=== PATIENT | male | born 1955 | race Caucasian/White ===

== ENCOUNTER 2025-01-28 07:01 | Observation (INO) ==
--- NOTE | 2024-03-22 10:40 | PAT Medication Instructions ---
Medication Instructions Date of Service March 22, 2024 Home Medications Medication Instructions Recorded blood-glucose meter (FreeStyle #1 ea 08/30/22 Lite Meter kit) ostomy supplies #100 ea 09/02/22 blood sugar diagnostic (FreeStyle #100 ea 09/03/22 Lite Strips) amlodipine 10 mg tablet 10 mg PO HS #90 tabs 06/08/23 celecoxib 100 mg capsule (Celebrex) 100 mg PO BID #60 caps 01/04/24 atorvastatin 20 mg tablet 20 mg PO QPM #90 tabs 01/26/24 metformin 500 mg tablet,extended 1,000 mg (2 x 500 mg) PO BID #360 02/09/24 release 24 hr tabs losartan 100 mg tablet 100 mg PO DAILY #90 tabs 02/20/24 glimepiride 4 mg tablet 4 mg PO DAILY #90 tabs 03/08/24 garlic 400 mg PO QAM glucosamine-chondroitin 250 mg-200 mg tablet (Osteo Bi-Flex) 2 tab PO QAM amlodipine 10 mg tablet 10 mg PO HS celecoxib 100 mg capsule (Celebrex) 100 mg PO BID atorvastatin 20 mg tablet 20 mg PO QPM metformin 500 mg tablet,extended release 24 hr 1,000 mg (2 x 500 mg) PO BID losartan 100 mg tablet 100 mg PO DAILY glimepiride 4 mg tablet 4 mg PO DAILY saw palmetto 450 mg capsule 450 mg PO QAM ASK your surgeon for instructions celecoxib 100 mg capsule (Celebrex) 100 mg PO BID STOP taking 2 weeks before surgery (or as soon as possible if surgery is within 2 weeks) garlic 400 mg PO QAM glucosamine-chondroitin 250 mg-200 mg tablet (Osteo Bi-Flex) 2 tab PO QAM saw palmetto 450 mg capsule 450 mg PO QAM DO NOT take the morning of surgery metformin 500 mg tablet,extended release 24 hr 1,000 mg (2 x 500 mg) PO BID losartan 100 mg tablet 100 mg PO DAILY glimepiride 4 mg tablet 4 mg PO DAILY Take evening before surgery amlodipine 10 mg tablet 10 mg PO HS atorvastatin 20 mg tablet 20 mg PO QPM metformin 500 mg tablet,extended release 24 hr 1,000 mg (2 x 500 mg) PO BID Other Notes NOTHING TO EAT OR DRINK AFTER MIDNIGHT If you have any questions please call us at [phone] or [phone] or [phone] or [phone]
--- NOTE | 2024-03-30 10:38 | Anesthesiology Consultation ---
Date of Service March 30, 2024 Assessment & Plan (1) Encounter for pre-operative examination: - check BSG am DOS. - Outpatient joint assessment: Patient is currently scheduled for inpatient pathway. If re-evaluated and patient/surgeon requests outpatient pathway, patient is acceptable candidate for outpatient joint program from anesthesia standpoint pending surgeon's office assessment of pt motivation/support/completion of same day joint program preop requirements. Chart Review Chart Review: Acceptable Risk for Surgery and Patient seen in Pre Admission Testing Teaching & Discussion Pre-Anesthesia Teaching/Discussion Notes: Instructed NPO after midnight before surgery, except medications with 15 cc of water. Medication instructions provided according to the PAT guidelines. History Surgery Operation Date: 04/27/24 11:00 Proposed Procedures p Left Total Knee Arthroplasty - Elmer Waters DO Height/Weight Height: 5 ft 9 in Weight: 105.6 kg Allergies Allergy/AdvReac Type Severity Reaction Status Date / Time No Known Allergies Allergy Unknown Verified 03/15/24 09:32 Medications Home Medications Medication Instructions Recorded Confirmed Last Taken blood-glucose meter (FreeStyle #1 ea 08/30/22 11/14/23 Unknown Lite Meter kit) garlic 400 mg PO QAM 09/02/22 03/15/24 09/07/22 glucosamine-chondroitin 250 mg-200 2 tab PO QAM 09/02/22 03/15/24 09/07/22 mg tablet (Osteo Bi-Flex) ostomy supplies #100 ea 09/02/22 11/14/23 Unknown blood sugar diagnostic (FreeStyle #100 ea 09/03/22 11/14/23 Unknown Lite Strips) amlodipine 10 mg tablet 10 mg PO HS #90 tabs 06/08/23 03/15/24 Unknown celecoxib 100 mg capsule (Celebrex) 100 mg PO BID #60 caps 01/04/24 03/15/24 Unknown atorvastatin 20 mg tablet 20 mg PO QPM #90 tabs 01/26/24 03/15/24 Unknown metformin 500 mg tablet,extended 1,000 mg (2 x 500 mg) PO BID #360 02/09/24 03/15/24 Unknown release 24 hr tabs losartan 100 mg tablet 100 mg PO DAILY #90 tabs 02/20/24 03/15/24 Unknown glimepiride 4 mg tablet 4 mg PO DAILY #90 tabs 03/08/24 03/15/24 Unknown saw palmetto 450 mg capsule 450 mg PO QAM 03/15/24 03/15/24 Unknown Past Medical History Medical History (Updated 03/30/24 @ 11:02 by Brooke Mckeon PA-C) Arthritis Benign prostatic hyperplasia Colostomy in place GERD (gastroesophageal reflux disease) infrequent History of colon cancer dx 2002-- w/ chemo and radiation Hyperlipidemia Hypertension controlled, stable per pt Type 2 diabetes mellitus NIDDM Patient denies h/o stroke, seizures, heart attack, heart failure, or blood clots/DVTs. Pt unsure if he has had any blood transfusions. Exercise / Class Metabolic Activity II 4-5 Yardwork/Stairs/Walk up hill (denies chest discomfort or shortness of breath with one flight of stairs) Past Family History Family History Aunt Colorectal cancer Other Myocardial infarction No family history of adverse response to anesthesia Denies family history of Ovarian cancer Prostate cancer Breast cancer Past Surgical History Surgical History (Updated 03/30/24 @ 11:01 by Brooke Mckeon PA-C) History of colon resection History of creation of ostomy History of surgical removal of skin lesion left ear History of tooth extraction Hx of colonoscopy Past Anesthesia History No Hx of Anesthesia Complications and No Family Hx of Anesthesia Complications History of PONV No Hx of PONV and No Hx of Motion Sickness Social History Smoking Status: Never smoker tobacco type: smokeless tobacco Do You Dip or Chew Tobacco: Yes (daily>made aware npo>advised) Hx Alcohol Use: Yes Alcohol type: beer alcohol intake frequency: holidays/special occasions only substance use type: does not use Review of Systems Snoring, denies witnessed apneas. Patient denies chest pain, shortness of breath, dyspnea on exertion, fever, chills, cough, wheezing, or palpitations. Physical Exam Vital Signs Vitals BP 130/80 P 79 TEMP 98 SP02 97% on RA RESP 18 Physical Patient resting comfortably in chair in no acute distress, alert and oriented, responding appropriately throughout visit Full cervical extension range of motion without pain TMD 3.5 finger breadths Mallampati Score 2 Dentition: edentulous Lungs: normal respiratory effort. Good air movement, clear throughout to auscultation, no adventitious breath sounds Cardiac: regular rate and rhythm, no murmurs noted Carotid arteries: negative bruit bilat Lab Results Anesthesia Preop Results Results Anesthesia Widget: WBC 5.93 K/ul (4.8-10.8) 03/30/24 Hgb 14.5 g/dl (14.0-18.0) 03/30/24 Hct 43.0 % (42.0-52.0) 03/30/24 Plt 174 K/uL (130-400) 03/30/24 Na 137 mmol/L (136-145) 02/07/24 K 3.9 mmol/L (3.5-5.1) 02/07/24 Cl 105 mmol/L (98-107) 02/07/24 CO2 25 mmol/L (21-32) 02/07/24 BUN 19 mg/dl (6-23) 02/07/24 Creat 0.76 mg/dl (0.6-1.4) 02/07/24 Glucose Level 235 mg/dl (70-99(Fasting)) H 02/07/24 PT 11.3 Seconds (9.0-12.0) 03/30/24 PTT 27 Seconds (21-31) 03/30/24 INR 1.0 (0.9-1.1) 03/30/24 TSH 0.833 uIu/ml (0.300-4.500) 02/07/24 HA1c 7.6 % (4.5-5.6) H 02/07/24 Blood Type A Negative 03/30/24 Antibody Screen NEGATIVE 03/30/24 Testing Laboratory Results Patient states that diabetic medications were adjusted by PCP-declines updated A1c which was done within 3 months and states surgeon's office advised it is within acceptable range. Surgeon's office made aware of elevated A1c. Electrocardiogram Date: 03/30/24 NSR, rate 75 bpm Left anterior fascicular block Moderate voltage criteria for LVH, may be normal variant Chest X-Ray Date: 03/30/24 No active disease in the chest.
--- NOTE | 2024-12-31 11:24 | PAT Medication Instructions ---
Medication Instructions Date of Service December 31, 2024 Home Medications Medication Instructions Recorded blood-glucose meter (FreeStyle #1 ea 08/30/22 Lite Meter kit) blood sugar diagnostic (FreeStyle #100 ea 09/03/22 Lite Strips) metformin 500 mg tablet,extended 1,000 mg (2 x 500 mg) PO BID #360 02/09/24 release 24 hr tabs amlodipine 10 mg tablet 10 mg PO HS #90 tabs 09/14/24 atorvastatin 20 mg tablet 20 mg PO QPM #90 tabs 09/14/24 ostomy supplies #100 ea 10/10/24 indapamide 1.25 mg tablet 1.25 mg PO QAM #90 tabs 11/02/24 metformin 500 mg tablet,extended release 24 hr 1,000 mg (2 x 500 mg) PO BID amlodipine 10 mg tablet 10 mg PO HS atorvastatin 20 mg tablet 20 mg PO QPM acetaminophen 500 mg oral powder packet (Tylenol Extra Strength) 500 mg PO BID PRN cyclobenzaprine 7.5 mg tablet 7.5 mg PO UD PRN diclofenac sodium 20 mg/gram/actuation (2 %) topical soln metered-dose pump 1 pump topical UD PRN indapamide 1.25 mg tablet 1.25 mg PO QAM cholecalciferol (vitamin D3) 1,250 mcg (50,000 unit) capsule 50,000 unit PO Q7D glimepiride 4 mg tablet 4 mg PO QAM losartan 100 mg tablet 100 mg PO QAM sitagliptin phosphate 50 mg tablet (Januvia) 50 mg PO QAM Continue as directed cyclobenzaprine 7.5 mg tablet 7.5 mg PO UD PRN(if needed) ASK your prescriber and surgeon diclofenac sodium 20 mg/gram/actuation (2 %) topical soln metered-dose pump 1 pump topical UD PRN (do not apply on or near surgical site) indapamide 1.25 mg tablet 1.25 mg PO QAM DO NOT take the morning of surgery metformin 500 mg tablet,extended release 24 hr 1,000 mg (2 x 500 mg) PO BID cholecalciferol (vitamin D3) 1,250 mcg (50,000 unit) capsule 50,000 unit PO Q7D glimepiride 4 mg tablet 4 mg PO QAM losartan 100 mg tablet 100 mg PO QAM sitagliptin phosphate 50 mg tablet (Januvia) 50 mg PO QAM Take morning of surgery With a small sip of water, OTHERWISE NOTHING TO EAT OR DRINK AFTER MIDNIGHT: acetaminophen 500 mg oral powder packet (Tylenol Extra Strength) 500 mg PO BID PRN(if needed) Take evening before surgery metformin 500 mg tablet,extended release 24 hr 1,000 mg (2 x 500 mg) PO BID amlodipine 10 mg tablet 10 mg PO HS atorvastatin 20 mg tablet 20 mg PO QPM acetaminophen 500 mg oral powder packet (Tylenol Extra Strength) 500 mg PO BID PRN(if needed) Other Notes If you have any questions please call us at [phone] or [phone] or [phone] or [phone]
--- NOTE | 2025-01-02 09:14 | Anesthesiology Consultation ---
Date of Service January 02, 2025 Assessment & Plan (1) Encounter for pre-operative examination: Chart Review Chart Review: Acceptable Risk for Surgery and Patient seen in Pre Admission Testing - Check BSG AM DOS - Patient NOT an ideal OPJ candidate (currently 23 hour obs) Per PAT appt on 01/02/25, no recent illness/disease exposures, illness related symptoms, or recent illness/disease positive tests. Will leave to surgeon's discretion if preop Covid testing needed Teaching & Discussion Pre-Anesthesia Teaching/Discussion Notes: Instructed NPO after midnight before surgery,except medications with 15 cc of water. Medication instructions provided according to the [facility] guidelines. History Surgery Operation Date: 04/27/24 12:00 Proposed Procedures p Left Total Knee Arthroplasty - Elmer Waters DO Operation Date: 01/28/25 11:15 Proposed Procedures p Left Total Knee Arthroplasty - Elmer Waters DO Height/Weight Height: 5 ft 10 in Weight: 110.1 kg Allergies Allergy/AdvReac Type Severity Reaction Status Date / Time No Known Allergies Allergy Unknown Verified 12/28/24 11:51 Medications Home Medications Medication Instructions Recorded Confirmed Last Taken blood-glucose meter (FreeStyle #1 ea 08/30/22 11/12/24 Unknown Lite Meter kit) blood sugar diagnostic (FreeStyle #100 ea 09/03/22 11/12/24 Unknown Lite Strips) metformin 500 mg tablet,extended 1,000 mg (2 x 500 mg) PO BID #360 02/09/24 0 12/28/24 Unknown release 24 hr tabs amlodipine 10 mg tablet 10 mg PO HS #90 tabs 09/14/24 12/28/24 Unknown atorvastatin 20 mg tablet 20 mg PO QPM #90 tabs 09/14/24 12/28/24 Unknown acetaminophen 500 mg oral powder 500 mg PO BID PRN Pain 10/10/24 12/28/24 Unknown packet (Tylenol Extra Strength) cyclobenzaprine 7.5 mg tablet 7.5 mg PO UD PRN muscle spasms 10/10/24 12/28/24 Unknown diclofenac sodium 20 1 pump topical UD PRN Pain 10/10/24 12/28/24 Unknown mg/gram/actuation (2 %) topical soln metered-dose pump ostomy supplies #100 ea 10/10/24 11/12/24 Unknown indapamide 1.25 mg tablet 1.25 mg PO QAM #90 tabs 11/02/24 12/28/24 Unknown cholecalciferol (vitamin D3) 1,250 50,000 unit PO Q7D 12/28/24 12/28/24 Unknown mcg (50,000 unit) capsule glimepiride 4 mg tablet 4 mg PO QAM 12/28/24 12/28/24 Unknown losartan 100 mg tablet 100 mg PO QAM 12/28/24 12/28/24 Unknown sitagliptin phosphate 50 mg tablet 50 mg PO QAM 12/28/24 12/28/24 Unknown (Jose Danieluvia) Past Medical History Medical History Arthritis Benign prostatic hyperplasia pt unsure- patient has no urinary symptoms Colostomy in place - no issues currently GERD (gastroesophageal reflux disease) hx, infrequent- controlled and stable History of colon cancer dx 2002-- s/p colectomy with colostomy and chemo and radiation Hyperlipidemia hx Hypertension controlled, stable per pt Type 2 diabetes mellitus NIDDM Exercise / Class Metabolic Activity III < 4 Walking/Shop/Light housework (one flight of stairs- no chest pain or SOB- goes very slow due to foot injury and knee pain ) Past Family History Family History Aunt Colorectal cancer Other Myocardial infarction No family history of adverse response to anesthesia Denies family history of Ovarian cancer Prostate cancer Breast cancer Past Surgical History Surgical History History of colon resection (2002) History of creation of ostomy (2002) History of surgical removal of skin lesion left ear History of tooth extraction Hx of colonoscopy Hx of foot surgery due to crush injury 04/16/2024, left foot "still has a lot of swelling" Past Anesthesia History No Hx of Anesthesia Complications and No Family Hx of Anesthesia Complications History of PONV No Hx of PONV and No Hx of Motion Sickness Social History Smoking Status: Former smoker tobacco type: smokeless tobacco Do You Dip or Chew Tobacco: No (quit 04/2024; advised) Smoking End Date: many years ago Hx Alcohol Use: Yes Alcohol type: beer alcohol intake frequency: holidays/special occasions only Hx Substance Use: No substance use type: does not use Review of Systems - Patient removed tick from left LE 01/01/25- no current redness or rash; no symptoms- patient removed entire tick. Was only on for several hours. Patient will monitor and call if any symptoms occur Patient denies chest pain, shortness of breath at rest, cough, wheezing, palpitations. No hx of seizures, stroke, [place], apnea/snoring. No hx of blood clots or blood transfusions Physical Exam Vital Signs VITALS BP 132/75 P 94 TEMP 98.1 SP02 94% RESP 16 Constitutional no acute distress ENMT Mouth: no TMJ clicking Thyromental Distance: > or= 3.5 Finger Breadths (3.5) Mallampati Class: I Missing all teeth Neck + limited neck extension (mild) and + facial hair (advised to trim and shave ) Respiratory normal respiratory effort; no respiratory distress Auscultation: lungs clear to auscultation bilaterally; no wheezes Cardiovascular Rate/Rhythm: regular rate and regular rhythm Heart Sounds: no murmur Vessels: no carotid bruit Musculoskeletal Spine: no pain with cervical ROM Extremities: extremities normal to inspection Psychiatric Orientation: alert Lab Results Anesthesia Preop Results Results Anesthesia Widget: WBC 6.10 K/ul (4.8-10.8) 01/02/25 Hgb 13.3 g/dl (14.0-18.0) L 01/02/25 Hct 40.6 % (42.0-52.0) L 01/02/25 Plt 193 K/uL (130-400) 01/02/25 Na 137 mmol/L (136-145) 01/02/25 K 4.2 mmol/L (3.5-5.1) 01/02/25 Cl 102 mmol/L (98-107) 01/02/25 CO2 29 mmol/L (21-32) 01/02/25 BUN 18 mg/dl (6-23) 01/02/25 Creat 0.92 mg/dl (0.6-1.4) 01/02/25 Glucose Level 256 mg/dl (70-99(Fasting)) H 01/02/25 PT 10.4 Seconds (9.0-12.0) 01/02/25 PTT 26 Seconds (21-31) 01/02/25 INR 1.0 (0.9-1.1) 01/02/25 HA1c 7.2 % (4.5-5.6) H 01/02/25 Blood Type A Negative 01/02/25 Antibody Screen NEGATIVE 01/02/25 Testing Electrocardiogram Date: 01/02/25 Findings: + NSR @ (89bpm) Left anterior fascicular block T wave abnormality, consider lateral ischemia When compared to EKG from March 30, 2024- no significant change was found per cardio (Discussed with Dr. Martinez- patient okay to proceed) Chest X-Ray Date: 04/16/24 Findings: + NAD
[~2025-01-28 07:01] MED LIST: ROPIVACAINE 0.5% 5 MG/ML 30 ML VIAL ONE
[2025-01-28] MEDS ORDERED: fentaNYL citrate PF 100 MCG/2 ML VIAL ONE (07:17)
[2025-01-28] MEDS ORDERED: MIDAZOLAM HCL 1 MG/ML 2ML VIAL ONE (07:17)
[2025-01-28] MEDS ORDERED: PROPOFOL IV EMULSION 10 MG/ML 20 ML VIAL IV ONE (07:17)
[2025-01-28] MEDS ORDERED: ONDANSETRON INJ 2 MG/ML 2 ML VIAL ONE (07:28)
[2025-01-28] MEDS ORDERED: DEXAMETHASONE SOD INJ 4 MG/ML VIAL ONE (07:28)
[2025-01-28] MEDS: LR 60ML/HR IV SCH (07:32)
[2025-01-28] MEDS: ACETAMINOPHEN 500 MG TAB PO SCH (07:32)
[2025-01-28] MEDS: LR 500ML BOLUS, THEN 15ML/HR IV SCH (07:32)
[2025-01-28] MEDS: FAMOTIDINE 20 MG TAB PO SCH (07:33)
[2025-01-28] MEDS: dexAMETHasone**PF** 10 MG/ML VIAL IV SCH (07:33)
[2025-01-28] MEDS: GABAPENTIN 300 MG CAP PO SCH (07:33)
--- NOTE | 2025-01-28 08:06 | History & Physical Bridge Note ---
Date of Service January 28, 2025 History & Physical Bridge Note I have examined the patient, reviewed the History & Physical and in the interval since the performance of the History & Physical I have noted the following changes of clinical significance: no changes noted
[2025-01-28] MEDS ORDERED: ePHEDrine sulfate 50 MG/ML AMP IV PRN (08:44)
[2025-01-28] MEDS ORDERED: ONDANSETRON INJ 2 MG/ML 2 ML VIAL IV PRN ×2 (08:44→13:46)
[2025-01-28] MEDS ORDERED: ATROPINE SULFATE 0.1 MG/ML 10ML SYR IV PRN (08:44)
[2025-01-28] MEDS ORDERED: fentaNYL citrate PF 100 MCG/2 ML VIAL IV PRN (08:44)
[2025-01-28] MEDS ORDERED: HYDROmorphone INJ 1 MG/ML SYRINGE IV PRN (08:44)
[2025-01-28] MEDS: TRANEXAMIC ACID 1,000 MG **IV Pre-op IV SCH (09:01)
[2025-01-28] MEDS: ceFAZolin 2000MG 2,000 MG/15 ML SYR IV SCH ×2 (09:20→18:09)
[2025-01-28] MEDS: ORTHO JOINT ANESTHETIC ONE (09:52)
[2025-01-28] MEDS: ROPIV 0.5% 246mg, Ketorolac 30mg, EPINEPHrine 0.5mg in NSS INFIL SCH (09:52)
[2025-01-28] MEDS: TRANEXAMIC ACID 1,000 MG **IV Intra-op IV SCH (10:15)
--- NOTE | 2025-01-28 10:38 | Operative Report ---
PG Post Operative Report Pre & Post Diagnosis Operation Date: 01/28/25 09:00 Pre-Op Diagnosis: Left Knee Degenerative Joint Disease Post-Op Diagnosis: Left Knee Degenerative Joint Disease I identified the patient and participated in the time-out.: Yes Procedure Operation Date: 01/28/25 09:00 Actual Procedures p Left Total Knee Arthroplasty(Left) - Elmer Waters DO Surgeon Elmer Waters DO Document Manager Jose Manuel Lane PA-C Estimated Blood Loss 50 Findings Consistent with Post-Op Diagnosis Specimens Left femoral and tibial bone Description of Procedure Implants used: I used a Dez Persona total knee arthroplasty system with a size 10 standard PS femur, F tibia, 34 oval patella, and a size 10 CPS polyethylene bearing. All components were cemented in place with Biomet cement. Brendan arrived [facility] for the above procedure. He was seen in the preoperative holding area and the operative extremity was identified and signed. He was given a preoperative antibiotic, TXA, a spinal anesthetic and an adductor nerve block. He was taken back to the operating room and laid on the table in supine position. He was given basic sedation. The operative knee was then prepped and draped in sterile fashion. A timeout was done, and the patient and the operative extremity was properly identified. A midline incision was made directly over the patella. Dissection was taken down to the extensor mechanism. A medial parapatellar arthrotomy was used. The medial retinaculum was released and the fat pad was mostly excised. The knee was flexed and the ACL, PCL, and meniscus were removed. A drill was sent down the center of the femoral canal followed by an intramedullary verona. Off that verona a distal femoral cutting block was placed. 9 mm was resected off the distal femur at 5 of valgus. A posterior referencing AP sizing guide was then placed on the distal femur. The femur measured to be a size 10. 2 drill holes were placed in 3 of external rotation. A 4-in-1 cutting block was then impacted into place. Anterior, posterior, and chamfer cuts were then made. The proximal tibia was then exposed. An external tibial alignment guide was placed. A tibial cut guide was then anchored in place and the proximal tibia was then resected. The posterior aspect of the knee was then opened up and any additional meniscus fragments and osteophytes were removed. The tibia measured to be a size F. The tibial plate was then placed in the appropriate rotation and the tibia was drilled and punched. Trial components were then placed. I used a size 10 CPS polyethylene insert. The knee was brought through a full range of motion and felt to be stable. The peg holes for the femoral component were then drilled. The patella was then everted and 9 mm was resected off the posterior aspect of the patella. The patella measured to be a size 34 oval. 3 peg holes were then drilled. A trial patella was placed. The knee was once again brought through a full range of motion and felt to be stable. Trial components were then removed. The surrounding soft tissues were injected with 100 cc of an orthopedic pain control cocktail. All components were then cemented into place with Biomet cement. The final polyethylene insert was then snapped into place. Once cement was dry the tourniquet was deflated. Hemostasis was obtained. A dilute betadyne lavage was then done for 3 minutes. The joint was then irrigated with normal saline solution. The medial parapatellar arthrotomy was then closed with #1 Vicryl suture. The skin was closed with 2-0 Vicryl, 3-0V lock suture, and jose. A soft compressive dressing was placed. He was then transferred to a hospital bed and taken to the postanesthesia care unit in stable condition. He tolerated the procedure well. Jose Manuel Lane PA-C, was present for the entire procedure. He was critical for patient positioning, prepping, draping, retraction exposure, wound closure and application of sterile dressing. I attest to the content of the Intraoperative Record and any orders documented therein. Any exceptions are noted below.
[2025-01-28] MEDS: INSULIN HUMAN REGULAR SC STA (11:21)
--- NOTE | 2025-01-28 11:36 | XRay Report ---
XR knee LT 1 or 2V routine CLINICAL HISTORY: Surgical Post Op COMPARISON: None FINDINGS: Left knee prosthesis shows no hardware complication. There is expected soft tissue gas. Sk in jose are present. IMPRESSION: Unremarkable postoperative exam. ACT 112: Negative or not required by law. Electronically signed by: Gopi Hinton M.D. 01/28/2025 11:34 AM
--- NOTE | 2025-01-28 13:10 | Anesthesiology Progress Note ---
Date of Service January 28, 2025 Anesthesia Post Procedure Vital Signs Vital Signs: Temp Pulse Pulse Resp BP BP Pulse Ox 01/28/25 12:40 100 H 20 135/93 92 01/28/25 12:25 100 H 19 138/80 92 01/28/25 12:10 36.6 C 99 H 19 134/81 92 01/28/25 12:00 96 H 20 133/72 94 01/28/25 11:50 97 H 20 142/77 H 93 01/28/25 11:40 98 H 18 149/81 H 93 01/28/25 11:30 95 H 18 137/74 95 01/28/25 11:20 97 H 20 130/73 95 01/28/25 11:10 97 H 18 143/79 H 96 01/28/25 11:05 36.5 C 100 H 20 151/81 H 94 01/28/25 07:05 37.1 C 89 20 168/95 H 94 O2 Del Method O2 Flow Rate 01/28/25 12:40 Nasal Cannula 2 01/28/25 12:25 Nasal Cannula 2 01/28/25 12:10 Nasal Cannula 2 01/28/25 12:00 Nasal Cannula 2 01/28/25 11:50 Nasal Cannula 2 01/28/25 11:40 Nasal Cannula 2 01/28/25 11:30 Nasal Cannula 2 01/28/25 11:20 Nasal Cannula 2 01/28/25 11:10 Nasal Cannula 2 01/28/25 11:05 Oxymask 6 01/28/25 07:05 Room Air Pain Intensity Left Knee: Pain Intensity: 2 Transfer of Care Handoff Completed per policy Notes Mental Status: alert / awake / arousable and participated in evaluation Patient Amnestic to Procedure: Yes Nausea / Vomiting: adequately controlled Pain: adequately controlled Airway Patency, RR, SpO2: stable & adequate BP & HR: stable & adequate Hydration State: stable & adequate Anesthetic Complications: no major complications apparent and Pt Satisfied with anesthetic care
[2025-01-28] MEDS ORDERED: oxyCODONE HCL IR 5 MG TAB (IMMEDIATE RELEASE) PO PRN (13:46)
[2025-01-28] MEDS ORDERED: MAGNESIUM HYDROXIDE SUSP 30 ML UDC PO PRN (13:46)
[2025-01-28] MEDS ORDERED: bisacodyL 10 MG SUPP PR PRN (13:46)
[2025-01-28] MEDS ORDERED: METOCLOPRAMIDE HCL INJ 5 MG/ML 2 ML VIAL IV PRN (13:46)
[2025-01-28] MEDS ORDERED: HYDROmorphone INJ 0.5 MG/0.5 ML SYR IV PRN (13:46)
[2025-01-28] MEDS ORDERED: NALOXONE HCL 0.4 MG/1 ML VIAL/CARP IV PRN (13:46)
[2025-01-28] MEDS ORDERED: CYCLOBENZAPRINE HCL 10 MG TAB PO PRN (14:00)
[2025-01-28] MEDS: NovoLIN-R INSULIN PER UNIT CHARGE ONE (14:03)
[2025-01-28] MEDS: INSULIN ASPART PER UNIT CHARGE SC SCH (14:43)
[2025-01-28] MEDS: KETOROLAC TROMETHAMINE 15 MG/ML VIAL IV SCH (14:45)
[2025-01-28] MEDS: INSULIN ASPART PER UNIT CHARGE ONE (14:58)
[2025-01-28 15:36] VITALS: RESP 16
[2025-01-28] MEDS: metFORMIN HCL ER 500 MG TABCR PO SCH (16:58)
--- NOTE | 2025-01-28 19:50 | Hospitalist Consultation ---
Date of Consultation January 28, 2025 Assessment & Plan (1) Status post left knee replacement: (2) Hypertension: (3) Diabetes type 2, uncontrolled: Plan Pt is a pleasant 69 yo male with a past med hx of colon cancer s/p resection with ostomy in 2002, HTN, HLD, BPH, and DMT2 not on insulin who presents to the hospital for L knee replacement. Consulted for med management/BSG management. He is currently POD#0. #DMT2 not on insulin at home - continued on home metformin and glimepiride - sliding scale like insulin order placed, - defer basal insulin for now as his stay will likely be short and sugar rise is most likely to reason stated below, but if he stays past tomorrow or consistently stays high (200s+) I would add a basal insulin - anticipate this increase in sugar levels to the 200-300s most likely secondary to pre/perioperative steroid use, would recommend limitation of steroids in patient with glucose sensitivity to dosing unless clinically necessary #HTN - continue home amlodipine and losartan - BPs today have been good/permissible Surgical needs per primary team. VTE ppx: holding postoperative given surgery was just today Supervising Physician Co-Signing Physician Notes Attending addendum: I have physically seen this patient, have supervised the medical residents activities, and agree with the H&P unless as otherwise noted. Assessment and Plan: The patient is a 69-year-old male with past medical history including colon cancer status post resection with ostomy in 2002, hypertension, hyperlipidemia, BPH, diabetes mellitus type 2, who underwent left total knee arthroplasty by Dr. Waters on 01/24/2025. Patient seen postoperatively, and is medically stable #Status post left total knee arthroplasty- Seen postoperatively is medically stable. Pain control and primary postoperative medications per primary service Diabetes mellitus- Hold metformin, glimepiride and Januvia until BSG confirmed in the AM Hypertension- Hold indapamide until confirmed normal renal function in the AM Continue losartan and amlodipine with hold parameters Hyperlipidemia- Continue atorvastatin History of Present Illness Reason for Consultation: post-op med mgmt, blood glucose control Requesting Physician: Elmer Waters DO Attending Physician: Elmer Waters DO History of Present Illness Pt is a pleasant 69 yo male with a past med hx of colon cancer s/p resection with ostomy in 2002, HTN, HLD, BPH, and DMT2 not on insulin who presents to the hospital for L knee replacement. Pt had surgery early today, states he is feeling well. He states his pain is mild and well controlled with current regime. No headache, chest pain, SOB. No abdominal pain or nausea/vomiting. He states he has not been on insulin in the past for his DM. He denies hx of CVA or CAD. Denies blood in his ostomy or urine. He has no questions or concerns at this time. Allergies Allergy/AdvReac Type Severity Reaction Status Date / Time No Known Allergies Allergy Unknown Verified 01/28/25 07:22 Home Medications Medication Instructions Recorded Confirmed Type blood-glucose meter (FreeStyle #1 ea 08/30/22 11/12/24 Rx Lite Meter kit) blood sugar diagnostic (FreeStyle #100 ea 09/03/22 11/12/24 Rx Lite Strips) amlodipine 10 mg tablet 10 mg PO HS #90 tabs 09/14/24 01/28/25 Rx atorvastatin 20 mg tablet 20 mg PO QPM #90 tabs 09/14/24 01/28/25 Rx acetaminophen 500 mg oral powder 500 mg PO BID PRN Pain 10/10/24 01/28/25 History packet (Tylenol Extra Strength) cyclobenzaprine 7.5 mg tablet 7.5 mg PO UD PRN muscle spasms 10/10/24 01/28/25 History diclofenac sodium 20 1 pump topical UD PRN Pain 10/10/24 01/28/25 History mg/gram/actuation (2 %) topical soln metered-dose pump (Pennsaid) ostomy supplies #100 ea 10/10/24 11/12/24 Rx indapamide 1.25 mg tablet 1.25 mg PO QAM #90 tabs 11/02/24 01/28/25 Rx cholecalciferol (vitamin D3) 1,250 50,000 unit PO Q7D 12/28/24 01/28/25 History mcg (50,000 unit) capsule glimepiride 4 mg tablet 4 mg PO QAM 12/28/24 01/28/25 History losartan 100 mg tablet 100 mg PO QAM 12/28/24 01/28/25 History sitagliptin phosphate 50 mg tablet 50 mg PO QAM 12/28/24 01/28/25 History (Januvia) metformin 500 mg tablet,extended 1,000 mg (2 x 500 mg) PO BID #360 01/10/25 01/28/25 Rx release 24 hr tabs aspirin 81 mg tablet,delayed 81 mg PO BID 6 weeks #84 tabs 01/28/25 Rx release (Adult Aspirin Regimen) cefadroxil 500 mg capsule 500 mg PO BID 10 days #20 caps 01/28/25 Rx oxycodone 5 mg tablet 5 mg PO Q6H PRN pain #30 tabs 01/28/25 Rx Patient History Medical History Arthritis Benign prostatic hyperplasia pt unsure- patient has no urinary symptoms Colostomy in place - no issues currently GERD (gastroesophageal reflux disease) hx, infrequent- controlled and stable History of colon cancer dx 2002-- s/p colectomy with colostomy and chemo and radiation Hyperlipidemia hx Hypertension controlled, stable per pt Type 2 diabetes mellitus NIDDM Surgical History History of colon resection (2002) History of creation of ostomy (2002) History of surgical removal of skin lesion left ear History of tooth extraction Hx of colonoscopy Hx of foot surgery due to crush injury 04/16/2024, left foot "still has a lot of swelling" Family History Aunt Colorectal cancer Other Myocardial infarction No family history of adverse response to anesthesia Denies family history of Ovarian cancer Prostate cancer Breast cancer Social History Smoking Status: Former smoker Tobacco Type: Smokeless Tobacco (Dip or Chew) Smoking End Date: many years ago; Second Hand Exposure: Yes (hx in the workplace); Do You Dip or Chew Tobacco: No (quit 04/2024; advised); Tobacco Cessation Education Requested by Patient: No Hx Alcohol Use: Yes Alcohol type: beer Alcohol Intake Frequency: Monthly or Less Hx Substance Use: No Preferred Language: Romansh Communication Ability: Effective Visual Impairment: No Limitations Hearing Ability: Hard of Hearing Fine Arts Instructor Required: No Beliefs That Will Affect Care: None marital status: Current Living Situation: Spouse current occupational status: other current occupation: skilled laborer Other Information That Helps Us Care for You: No Feels Safe at Home: Yes Safety Concerns: Feels Safe At This Time Childhood Exposure to Second-Hand Smoke: Yes Diet: regular Diet Comment: regular caffeine: Yes during the past year weight has: remained stable Dental Care, Regularly: No Physical Activity Frequency: Daily Seatbelt Use: always Sunscreen Use: Yes Assistive Devices: Cane and Glasses Assistive Devices Comment: reading glasses prn Review of Systems Review of Systems: Per HPI. Physical Exam Physical Exam: General:Alert and oriented, no acute distress, HEENT: Normocephalic, moist oral mucosa, Cardio: Regular rate and rhythm, soft systolic murmur noted Resp:Lungs clear to auscultation b/l, no wheezes or rhonchi, GI: Soft and nontender, nondistended, bowel sounds active, ostomy in place without drainage Skin: Warm, pink, dry, Results & Data Results & Data Vital Signs (Past 12 Hours) Vital Signs Temp Pulse Resp BP Pulse Ox O2 Del Method O2 Flow Rate 01/28/25 19:09 36.9 C 97 H 16 138/81 93 Room Air 01/28/25 16:06 Nasal Cannula 2 01/28/25 15:35 37.1 C 103 H 16 146/82 H 93 Room Air 2 01/28/25 15:35 37.1 C 103 H 16 146/82 H 93 Nasal Cannula 2 01/28/25 14:30 102 H 20 141/88 H 94 Nasal Cannula 2 01/28/25 13:40 100 H 22 147/90 H 96 Nasal Cannula 2 01/28/25 13:10 104 H 20 142/85 H 93 Nasal Cannula 2 01/28/25 12:55 100 H 18 156/86 H 94 Nasal Cannula 2 01/28/25 12:40 100 H 20 135/93 92 Nasal Cannula 2 01/28/25 12:25 100 H 19 138/80 92 Nasal Cannula 2 01/28/25 12:10 36.6 C 99 H 19 134/81 92 Nasal Cannula 2 01/28/25 12:00 96 H 20 133/72 94 Nasal Cannula 2 01/28/25 11:50 97 H 20 142/77 H 93 Nasal Cannula 2 01/28/25 11:40 98 H 18 149/81 H 93 Nasal Cannula 2 01/28/25 11:30 95 H 18 137/74 95 Nasal Cannula 2 01/28/25 11:20 97 H 20 130/73 95 Nasal Cannula 2 01/28/25 11:10 97 H 18 143/79 H 96 Nasal Cannula 2 01/28/25 11:05 36.5 C 100 H 20 151/81 H 94 Oxymask 6 Resident Activity Tracking Resident Involvement: Resident Care Provided Care Provided: Adult Hospital Medicine
[2025-01-28] MEDS: ACETAMINOPHEN 500 MG TAB PO PRN (19:57)
[2025-01-28] MEDS: SENNA 8.6 MG TAB PO SCH (21:40)
[2025-01-28] MEDS: DOCUSATE SODIUM 100 MG CAP PO SCH (21:40)
[2025-01-28] MEDS: ATORVASTATIN 20 MG TAB PO SCH (21:41)
[2025-01-28] MEDS: amLODIPine BESYLATE 5 MG TAB PO SCH (21:41)
[2025-01-28] MEDS: ASPIRIN 81 MG ECTAB PO SCH (22:30)
[2025-01-29] MEDS: INSULIN ASPART PER UNIT CHARGE SC STA (00:40)
--- NOTE | 2025-01-29 03:49 | Billing Data ---
Date of Service January 29, 2025 Coding Level of Care Code 64022 IN/OBS CONSULT LVL 3,45M
--- NOTE | 2025-01-29 06:39 | Orthopedic Progress Note ---
Date of Service January 29, 2025 Assessment & Plan (1) Status post left knee replacement: Pain controlled PT/OT wbat dvt prophylaxis: teds, scd's, aspirin d/c home today after therapy Subjective . 69 year old patient POD 1 from left tka with Dr Waters. Pain controlled, not any worse than preop pain. No other complaints. Review of Systems All systems reviewed & are unremarkable except as noted in HPI & below. Physical Exam .alert and oriented. NAD, VSS left leg: dressing clean, dry, intact. NVI. able to do straight leg raise, DF/PF Results & Data Results & Data Laboratory Results . Diagnostic Findings . PG Care Time/CCT Total # of Minutes Spent Total Time Spent with Patient: Total time spent is greater than 50% in coordination of care (as documented) at patient's floor/unit and/or counseling patient: Coding Level of Care Code 94676 Post Operative Follow-Up Diagnoses Status post left knee replacement Z96.652
[2025-01-29 06:46] LABS: Basophils # (auto) 0.02 K/uL (0.00-0.20); Basophils % (auto) 0.1 %; Hematocrit (blood only) 32.1 % (42.0-52.0); Hemoglobin 10.7 g/dl (14.0-18.0); Immature Granulocytes # (auto) 0.17 K/uL (0.01-0.20); Immature Granulocytes % (auto) 1.1 %; Lymphocytes # (auto) 1.05 K/uL (1.20-3.40); Lymphocytes % (auto) 6.7 %; Mean Corpuscular Hgb Conc 33.3 g/dL (32.0-36.0); Mean Platelet Volume 9.9 fL (9.4-12.4); Monocytes # (auto) 1.09 K/uL (0.11-0.59); Neutrophils # (auto) 13.26 K/uL (1.40-6.50); Neutrophils % (auto) 85.1 %; Platelet Count 194 K/uL (130-400); RDW Coefficient of Variation 13.8 % (11.5-14.5); Red Blood Count 3.82 M/uL (4.70-6.10); White Blood Count 15.59 K/ul (4.8-10.8)
[2025-01-29 06:59] LABS: BUN Creatinine Ratio 30.8 (10-20); Calcium 8.8 mg/dl (8.6-10.3); Creatinine Clr Calc Pharmacy 96.4 ml/min; Phosphorus 3.2 mg/dl (2.5-4.9); Potassium 4.2 mmol/L (3.5-5.1)
[2025-01-29 07:29] VITALS: BP 145/76; PULSE 100; TEMP 97.9; O2SAT 94
[2025-01-29] MEDS: LOSARTAN POTASSIUM 50 MG TAB PO SCH (07:52)
[2025-01-29] MEDS: MULTIVITAMIN TAB PO SCH (07:58)
[2025-01-29] MEDS ORDERED: GLIMEPIRIDE 2 MG TAB PO SCH (09:00)
[2025-01-29] MEDS ORDERED: INDAPAMIDE 1.25 MG TAB PO SCH (09:00)
[2025-01-29] MEDS: dexAMETHasone 4 MG TAB PO SCH (09:45)
--- NOTE | 2025-01-30 16:00 | Discharge Summary ---
Date of Service January 30, 2025 Admission HPI (Per Admitting) Brendan is a pleasant 69-year-old male who has been dealing with chronic increasing left knee pain. X-rays and clinical exam have been diagnostic for advanced arthritis of the left knee. He was initially scheduled to have his knee replaced, but he was run over by a front dip stand loader on his foot. He had reconstructive foot surgery in [place] about 3-1/2 months ago. That is healing. We discussed diagnosis and treatment options in the office today. He is still struggling some with the left knee. He would like to proceed with a left total knee arthroplasty. I went over his medical history with him in detail. He is a diabetic, but his last A1c was 7.2. We will repeat that study and his A1c needs to be below 8.0 to proceed with surgery. He understands that. I also talked to him about the potential for further swelling of his foot postoperatively with a knee replacement. He understands all that. He is just really struggling with the knee and would like to get something done. He is not on any anticoagulants. I think it is reasonable to proceed with a total knee arthroplasty. I will see him back in the office 2 weeks postoperatively. Admission Exam (Per Admitting) Appearance:This is a well-developed, well-nourished male in no apparent distress.Musculoskeletal:He is ambulating with a cane. His foot is still a little bit swollen. He has tenderness to palpitation over the distal medial femoral condyle and over the medial joint line. Principal Diagnosis Same as "Discharge Diagnosis" noted below under Discharge Instructions. Discharge Exam .alert and oriented. NAD, VSS left leg: dressing clean, dry, intact. NVI. able to do straight leg raise, DF/PF Discharge Data Consultations 01/28/25 19:00 Consult Hospitalist Routine Procedures Performed Operation Date: 01/28/25 09:00 Actual Procedures p Left Total Knee Arthroplasty(Left) - Elmer Waters, Ordered Studies 01/28/25 05:00 US - OR guided needle placemen Routine Hospital Course (1) Status post left knee replacement: Plan On January 28, 2025 Brendan arrived at [facility] operating room and underwent a left total knee replacement without complications. Patient had an adductor canal block and spinal anesthetic for the procedure. Postoperatively, patient was transferred to the general orthopedic floor in stable condition and eventually started onto aspirin 81 mg twice daily for DVT prophylaxis as appropriate. Patient's hospital course was uneventful. On postoperative day #1, patient's vital signs were stable and pain was well- controlled. Patient was able to participate well with physical therapy, safely performing the necessary ambulation and range of motion exercises and properly demonstrating ADL tasks. Patient was then discharged home in stable condition, with home health PT services to begin. Patient will follow-up with orthopedics in 2 to 3 weeks for postoperative care. PG Care Time/CCT Total # of Minutes Spent Total Time Spent with Patient: Total time spent is greater than 50% in coordination of care (as documented) at patient's floor/unit and/or counseling patient: Discharge Plan Discharge Items Patient Disposition: Home - Home Health Services Reason For Visit: Left Knee Degenerative Joint Disease Discharge Diagnosis: Left knee replacement Activity: Per Instructions section Non-emergency contact: Surgeon Call non-emergency contact if: you have any medication questions, your pain is not controlled, you have a fever, your wound has increased redness and your wound has increased drainage Follow-up/Referrals: Abrahan Guidry CRNP [Primary Care Provider] - Diet: Regular Addtl Attending Provider Instructions: Activity and Therapy Recommendations: * If you are using [facility] then therapy will be provided at your home until they feel you have accomplished all of your goals. * If you are using [facility] then Physical Therapy will be provided until they feel you are ready to start Outpatient Physical Therapy. * If you are not using home therapy then Outpatient Physical Therapy should start about 3-5 days from your day of surgery. Therapy will last about 6-10 weeks * It is important not to put a pillow under your knee when you are relaxing or sleeping. It is just as important to make sure you are getting your knee perfectly straight as it is to regain your knee bend. * You were shown a series of exercises in the hospital. Do these exercises three times each day including the exercises you were shown in physical therapy. * Get up and walk several times each day. For the first four weeks, try not to stand or walk for more than one hour at a time. If you do stand or walk for more than one hour, you will not hurt anything, but your leg will likely swell. * As you feel comfortable, you may change from the walker or crutches to a cane and then to independent walking. Medications: * Narcotic You will likely be sent home from the hospital with a prescription for the narcotic pain medication that worked best throughout your stay. * Cefadroxil -take the antibiotic twice a day for 10 days to help prevent infection. * Aspirin Most patients will be required to take Aspirin 81mg twice a day for 6 weeks after surgery. This is obtained [id number] and a prescription is not necessary. * Other medications may be prescribed for specific circumstances. If you have any questions, please call the office at . * Resume previous home medications unless otherwise instructed TEDs/Elastic Stockings: The white elastic stockings help limit swelling and prevent blood clots from forming in your legs.~ The more you wear them, the more they work. Wear them for 2 weeks. Dressing Care: The dressing can be changed after physical therapy on postop day #1. Daily dry dressing changes for a few days, especially if the incision is still draining some. If the incision is not draining then you may leave the jose open to air. If there is a little bit of drainage or if the jose are getting stuck on your clothing then cover the incision with a dry dressing. The jose will be removed at your 2 week follow-up appointment. Showering: You may shower 5 days from the day of surgery as long as the incision is no longer draining. You may shower with the jose exposed. Let soapy water run over the jose and pat them dry. Do not scrub or soak the incision. Diet: You may resume your previous diet. Things To Watch For: * Drainage from the incision site that occurs more than one week after your surgery. * Increased redness at the incision site. * Fever above 102 degrees Fahrenheit. * Unusual chest pain or shortness of breath. * Call [facility] at with any of the above problems Follow-Up Visit: Follow-up with Dr. Waters's office 2-3 weeks after your day of surgery. We will remove your jose and answer any questions. If you have any additional questions or concerns, Dr Waters is usually in the office at the same time and will be available An appointment was probably scheduled when you signed-up for surgery in the office. If you have any questions call Office Instructions: More detailed instructions as well as Frequently Asked Questions were provided in a folder by our office when you signed-up for surgery. Please review these instructions when you get home. If you have any further questions or concerns, please feel free to call the office at [phone] Pending Studies at Discharge: No Stand-Alone Forms: [facility], [facility] Cessation Medications and DC Order Prescriptions: New aspirin [Adult Aspirin Regimen] 81 mg tablet,delayed release (DR/EC) 81 mg PO BID 42 Days Qty: 84 0RF cefadroxil 500 mg capsule 500 mg PO BID 10 Days Qty: 20 0RF oxycodone 5 mg tablet 5 mg PO Q6H PRN (Reason: pain) Qty: 30 0RF Continued (DME) blood-glucose meter [FreeStyle Lite Meter] Kit See Rx Instructions .Route Qty: 1 0RF Rx Instructions: As directed (DME) FreeStyle Lite Strips Strip See Rx Instructions .Route Qty: 100 3RF Rx Instructions: DX: E11.65 testing 3 times daily. atorvastatin 20 mg tablet 20 mg PO QPM Qty: 90 2RF amlodipine 10 mg tablet 10 mg PO HS Qty: 90 3RF indapamide 1.25 mg tablet 1.25 mg PO QAM Qty: 90 2RF metformin 500 mg tablet extended release 24 hr 1,000 mg PO BID Qty: 360 1RF Tylenol Extra Strength 500 mg powder in packet 500 mg PO BID PRN (Reason: Pain) diclofenac sodium [Pennsaid] 20 mg/gram /actuation(2 %) solution in metered- dose pump 1 pump topical UD PRN (Reason: Pain) cyclobenzaprine 7.5 mg tablet 7.5 mg PO UD PRN (Reason: muscle spasms) (DME) ostomy supplies Misc See Rx Instructions .Route Qty: 100 1RF Rx Instructions: As directed glimepiride 4 mg tablet 4 mg PO QAM losartan 100 mg tablet 100 mg PO QAM Januvia 50 mg tablet 50 mg PO QAM cholecalciferol (vitamin D3) 1,250 mcg (50,000 unit) capsule 50,000 unit PO Q7D Admission Data Admit Date/Time: 01/28/25 10:42 Attending Provider: Elmer Waters Admit Provider: Elmer Waters Primary Care Provider: Abrahan Guidry Other Providers: Deja Ratliff Other Interventions: Discharge Summary Assessment (RN) Last Done: 01/29/25 10:45
== END 2025-01-29 11:38 | disposition home health service (06) ==
LOC: ASU 07:01 → PACUINP 07:01 → 3E 15:41
DX: M17.12 Unilateral primary osteoarthritis, left knee; I10 Essential (primary) hypertension; Z79.84 Long term (current) use of oral hypoglycemic drugs; Z79.899 Other long term (current) drug therapy; G47.33 Obstructive sleep apnea (adult) (pediatric); K21.9 Gastro-esophageal reflux disease without esophagitis; D11.9 Benign neoplasm of major salivary gland, unspecified